=== PATIENT | male | born 1995 | race Caucasian/White ===

== ENCOUNTER 2017-07-27 01:20 | Emergency (ER) | payer BC ==
[2017-07-27 07:23] VITALS: BP 123/68
--- NOTE | 2017-08-01 17:37 | ED ---
Mj Morris Thomas, scribed for Shruti Tate MD on 07/27/17 at 0659 . Laceration/Wound HPI - HPI Summary HPI Summary: The patient is an intoxicated 21 y/o male who was moving a table in the mud when he fell and hit his lower left lip on the table. There was no LOC. The patient has two lacerations on his lip. When he walks, he is neither dizzy nor lightheaded. He denies dental pain. He is previously healthy. - History of Current Complaint Stated Complaint: LIP LAC Time Seen by Provider: 07/27/17 04:27 Hx Obtained From: Patient Mechanism of Injury: Other - Fell when moving table Onset/Duration: Lasting Hours - earlier tonight, Still Present Aggravating: Movement Alleviating: Nothing Timing: Constant Current Severity: None Pain Intensity: 0 Pain Scale Used: 0-10 Numeric Related Hx: Other - Slipped when moving table - Allergy/Home Medications Allergies/Adverse Reactions: Allergies Allergy/AdvReac Type Severity Reaction Status Date / Time Iodine Allergy Unknown Verified 07/27/17 01:29 Reaction Details PMH/Surg Hx/FS Hx/Imm Hx Previously Healthy: Yes Endocrine/Hematology History: Denies: Hx Diabetes Cardiovascular History: Denies: Hx Hypertension - Surgical History Surgery Procedure, Year, and Place: None. - Immunization History Immunizations Up to Date: Yes Infectious Disease History: No Infectious Disease History: Denies: Traveled Outside the [place] in Last 30 Days - Family History Known Family History: Positive: Other - Patient denies relevant FHx - Social History Alcohol Use: Weekly Alcohol Amount: 5 drinks of beer Substance Use Type: Reports: None Smoking Status (MU): Former Smoker Review of Systems Negative: Fever, Chills Negative: Blurred Vision, Diplopia Negative: Sore Throat Negative: Chest Pain Negative: Shortness Of Breath, Cough Negative: Abdominal Pain, Vomiting, Nausea Negative: dysuria, hematuria Negative: Myalgia Positive: Other - Laceration Neurological: Other - NEGATIVE: LOC, dizziness, lightheadedness Negative: Anxious, Depressed All Other Systems Reviewed And Are Negative: Yes Physical Exam - Summary Physical Exam Summary: Appearance: Alert, conversive, nontoxic appearing Skin: The patient has one laceration to the inside of his mouth. It is 1.5 cm in length and it is close to the lower frenulum.There is a second laceration to the left inferior lip 1.5 cm in length. It does not need closure. Warm, dry, no mottling, no rashes, no contusions HEENT: EOMI, PERRL, moist mucous membranes Neck: No masses on the neck, supple Respiratory: Clear to auscultation, breath sounds present, no rales, no rhonchi , no wheezes Cardiovascular: RRR, pulses are symmetrical in both lower and upper extremities Abdomen: Soft, non-tender Bowel Sounds: Present Musculoskeletal: No CVA tenderness, no obvious deformity, moving all extremities in a grossly normal manner Neurological: A&Ox3, CN II-XII Intact, moving all extremities symmetrically Psychiatric: Normal affect and mood Triage Information Reviewed: Yes Vital Signs On Initial Exam: Initial Vitals Temp Pulse Resp BP Pulse Ox 97.5 F 111 16 162/91 97 07/27/17 01:25 07/27/17 01:25 07/27/17 01:25 07/27/17 01:25 07/27/17 01:25 Vital Signs Reviewed: Yes - Daniele Coma Scale Coma Scale Total: 15 Procedures - Laceration/Wound Repair 1 Location: Other - Left inferior lip Description: Linear Anesthesia: 2.0%, Lido, Epi Diagnostics - Vital Signs Vital Signs Temp Pulse Resp BP Pulse Ox 07/27/17 01:25 97.5 F 111 16 162/91 97 - Laboratory Lab Statement: Any lab studies that have been ordered have been reviewed, and results considered in the medical decision making process. Laceration Repair Course/Dx - Clinical Impression Provider Diagnoses: Alcohol intoxication, Lip laceration Discharge - Discharge Plan Condition: Stable Disposition: HOME Patient Education Materials: Laceration (ED), Alcohol Intoxication (ED) Referrals: [facility] [Primary Care Provider] - Additional Instructions: return in 1 week for suture removal. apply antibiotic ointment to the wound. keep clean. do not eat spicy food or food that has corners like chips. they may irritate your wound and inhibit healing. Tylenol and motrin for pain. The documentation as recorded by the Mj chung Thomas accurately reflects the service I personally performed and the decisions made by , Shruti Tate MD.
== END 2017-07-27 07:26 | disposition home or self-care (01) ==
LOC: ED 01:20
DX: F10.129 Alcohol abuse with intoxication, unspecified (principal); S01.511A Laceration without foreign body of lip, initial encounter; Z87.891 Personal history of nicotine dependence; W19.XXXA Unspecified fall, initial encounter; Y93.9 Activity, unspecified; Y92.9 Unspecified place or not applicable; Y99.9 Unspecified external cause status
CPT/HCPCS: 99282